=== PATIENT | female | born 1950 | race Caucasian/White ===

== ENCOUNTER 2018-07-21 15:30 | Emergency (ER) | payer OTHER ==
[~2018-07-21] VITALS: Ht 162.6 cm; Wt 68.0 kg
[2018-07-21] MEDS ORDERED: PRILOSEC10 MG (15:38)
[2018-07-21] MEDS ORDERED: BACLOFEN10 MG (15:38)
[2018-07-21] MEDS ORDERED: CLARINEX2.5 MG/5 M (15:38)
[2018-07-21] MEDS ORDERED: BACTRIM DS TAB1 EACH PO (19:59)
== END 2018-07-21 20:09 | disposition home or self-care (01) ==
LOC: EDBD 15:30 → ER 15:30
DX: N39.0 Urinary tract infection, site not specified (principal); B96.1 Klebsiella pneumoniae [K. pneumoniae] as the cause of diseases classified elsewhere

== ENCOUNTER 2018-07-26 16:05 | Emergency (ER) | payer OTHER ==
[~2018-07-26] VITALS: Ht 162.6 cm; Wt 68.9 kg
[~2018-07-26 16:05] MED LIST: BACLOFEN10 MG; BACTRIM DS TAB1 EACH PO; CLARINEX2.5 MG/5 M; PRILOSEC10 MG
== END 2018-07-26 17:52 | disposition home or self-care (01) ==
LOC: ER 16:05
DX: N39.0 Urinary tract infection, site not specified (principal)